=== PATIENT | male | born 1970 | race Caucasian/White ===

== ENCOUNTER → 2021-05-15 09:28 | Outpatient (CLI) | payer OTHER, SELFPAY ==
--- NOTE | 2021-05-15 09:32 | CT_ITS ---
PROCEDURE: CT ABDOMEN PELVIS W CON CLINICAL INDICATION: vomiting Mid abdominal pain COMPARISON: No exams were available for comparison TECHNIQUE: IV Contrast: 75ML Isovue 370 Oral Contrast None Axial images obtained with sagittal and coronal reformats. All CT scans at the facility use one or more dose reduction, viz: automated exposure control, ma/kV adjustment per patient size (including targeted exams where dose is matched to indication, i.e. head), or iterative reconstruction technique. FINDINGS: LOWER THORAX: 4 mm noncalcified nodules present in the right lower lobe laterally. Calcified nodules are also present. Subpleural opacity is present in left lower lobe 4 mm nonspecific. ABDOMEN & PELVIS: There is mild [place] steatosis. No focal liver lesion is apparent. The spleen, right adrenal gland, and pancreas has an unremarkable appearance. There is elongation both limbs of the left adrenal gland with the left limb containing a fatty nodule measuring 2.3 cm consistent with an adrenal myelolipoma. There are few scattered small nodes in the retroperitoneum. No renal or ureteral calculi. No renal mass or hydronephrosis. There is a mild amount of retained colonic feces. There is a large ventral abdominal wall hernia in the mid abdominal region which contains a loop of transverse colon. The herniated portion of the transverse colon extends across midline to the left. The hernia orifice measures 11 cm in diameter. This hernia is 13 cm cephalad to the umbilicus. There is a right periumbilical hernia which contains a loop of small bowel. This hernia orifice is approximately 3 cm in diameter. There is also a small umbilical hernia which contains a small loop of small bowel. No bowel obstruction is evident. No pelvic mass or abnormal fluid collection. Degenerative changes are present in the lower thoracic spine. Surgical clips are present in the central pelvic region IMPRESSION: 1. Large ventral abdominal wall hernia containing: In the upper abdomen. The herniated colon extends to the left of midline 2. Right periumbilical hernia containing a loop of small bowel with a small umbilical hernia also noted containing a loop of small bowel. 3. No evidence of bowel obstruction at this time 4. Left adrenal myelolipoma Dictated by: Jung Hall MD 05/16/2021 11:45 Jung Hall MD in [place] 05/16/2021 11:45
== END ==
PROVIDERS: PCP Family Medicine; Visit Provider Surgery
DX: R10.9 Unspecified abdominal pain (principal)
CPT/HCPCS: 74177; Q9967

== ENCOUNTER 2022-03-08 01:59 | Inpatient (IN) | payer OTHER, SELFPAY ==
[2022-03-08] VITALS (28 sets, daily range): BP systolic 91–175; BP diastolic 77–122; PULSE 78–111; RESP 18–24; TEMP 36.4–36.9; O2SAT 91–98; BMI 43.5
--- NOTE | 2022-03-08 | IR_ITS ---
APPROVED REPORT Patient Location: Inpatient Disability Liaison Officer: JOHN Key RT (R) PROCEDURES 1. Left heart catheterization 2. Selective coronary arteriography 3. Left ventriculography INDICATION 1. Non-Q wave myocardial infarction, 2. Coronary artery disease SCAI INDICATION Patient is a 51-year-old white male who presented with chest pain. Pressure and tightness in the chest. Known coronary disease. Malignant hypertension. Leak cardiac enzymes. Secondary to this referred for left heart catheterization Informed consent was obtained prior to the procedure. COMPLICATIONS NONE Estimated Blood Loss: LESS THAN 10 ML TECHNIQUE Radial approach. Jung's test appropriate for the procedure. Skin anesthetized and then accessed the radial artery. Sheath placed without difficulty. ANGIOGRAPHIC RESULTS The left main artery Distal 20% napkin ring stenosis The left anterior descending artery With an eccentric 30% proximal stenosis followed by a complex 50% proximal/mid stenosis and then a 99% mid stenosis. MICHAELA II flow to the distal left anterior descending itself. There was also a 50% stenosis noted at the wraparound to the apex. The distal left anterior descending collateralized the right coronary artery in its distal portion first diagonal branch was also noted to have a proximal 70% stenosis The circumflex artery Moderate sized vessel. 99% proximal stenosis followed by a stent in the mid vessel which was free of disease. Just after the stent patient had another 70% eccentric stenosis. MICHAELA II flow into the mid and distal left circumflex The right coronary artery Large and dominant. High atrial branch collateralized the distal right coronary artery with right to right collaterals. 100% proximal/mid occlusion of the right coronary artery itself The WARNER ventriculogram reveals Preserved normal left ventricular systolic function at 55 to 60% The left ventricular end-diastolic pressure 38 IMPRESSION 1. Critical three-vessel [place] coronary artery disease 2. Patent stent in the mid left circumflex 3. Preserved normal left ventricular systolic function 4. Severe elevation in left ventricular end-diastolic pressure 5. Successful removal of the radial sheath with placement of radial band PLAN 1. Patient will need coronary artery bypass grafting. Will be transferred to [facility]. Critical three-vessel [place] coronary artery disease with MICHAELA II flow in the left anterior descending and circumflex as well as 100% mid occlusion of the right coronary artery which is collateralized in its distal portion via right to right and left to right collaterals. Left ventricular function is preserved. Left ventricular end-diastolic pressure is severely elevated likely secondary to hypertensive heart disease. Heparin will be started and nitroglycerin drip will be continued. 80 mg of IV Lasix will also be given Electronically signed by : Tal Chauhan MD 03/08/2022 10:44:52
--- NOTE | 2022-03-08 02:17 | PC.NURSE ---
Patient arrived to floor via stretcher by EMS. @ 02:04.
--- NOTE | 2022-03-08 02:18 | PC.NURSE ---
Addendum entered by Ashley Figueredo RN 03/08/22 02:21: pt in trigeminy on monitor, HR low 100's, pt ambulated to bathroom independently Original Note: pt admitted to [facility] from [facility], EMS brought pt to room, pt on nitro drip at 50mcg/min, pt states still having the chest pain, pt has perisistent clearing throat cough
[2022-03-08 03:05] LABS: Coronavirus 19, PCR Not Detected (NotDetected); Influenza A, PCR Not Detected (NotDetected); Influenza B, PCR Not Detected (NotDetected)
--- NOTE | 2022-03-08 03:08 | PC.NURSE ---
during admission paperwork, pt stated has stopped smoking and only uses patches now
[2022-03-08 03:09] LABS: Basophils # 0.1 K/mm3 (0-0.2); Eosinophils # 0.1 K/mm3 (0.0-0.4); Eosinophils % 0.7 % (0.1-12.0); Hematocrit 54.1 % (42.0-52.0); Hemoglobin 17.2 g/dL (14.1-18.0); Lymphocytes # 0.9 K/mm3 (0.7-4.5); Lymphocytes % 9.8 % (10-50); Mean Corpuscular HGB Conc 31.7 g/dL (31.8-35.4); Mean Corpuscular Hemoglobin 30.6 pg (27.0-31.2); Mean Corpuscular Volume 96.4 fl (80-94); Mean Platelet Volume 10.1 fl (7.4-10.4); Monocytes # 0.7 K/mm3 (0.1-1.0); Monocytes % 7.4 % (1.7-9.3); Neutrophils # 7.7 K/mm3 (1.8-7.8); Neutrophils % 81.1 % (37.0-80.0); Platelet Count 204 K/mm3 (142-424); Red Blood Count 5.61 M/mm3 (4.60-6.20); Red Cell Distribution Width 14.9 % (11.5-17.5); White Blood Count 9.5 K/mm3 (4.8-10.8)
[2022-03-08 03:10] LABS: Chloride 103 mmol/L (98-107); Potassium 5.5 mmoL/L (3.5-5.1); Sodium 139 mmol/L (136-145)
[2022-03-08 03:13] LABS: Anion Gap 8.5 mEq/L (5-15); Blood Urea Nitrogen 15 mg/dl (9-20); Carbon Dioxide 33 mmol/L (22.0-30.0); Creatinine Clearance Estimated 101 mL/min (50-200); Estimated Glomerular Filt Rate 103 ml/min (>60); GFR (African American) 124 ML/MIN (>60)
[2022-03-08 03:14] LABS: Calcium 9.9 mg/dl (8.4-10.2); Glucose 322 mg/dl (74-100)
[2022-03-08 03:27] LABS: Troponin I 0.27 ng/ml (0.00-0.034)
--- NOTE | 2022-03-08 03:35 | ECG_ITS ---
APPROVED REPORT Exam: Resting ECG HR:106 bpm ECG Measurements Heart Rate 106 AXES OR 160 P 74 QRSd 105 QRS 59 QT 317 T -6 QTc 379 Conclusion SINUS TACHYCARDIA WITH FREQUENT VENTRICULAR PREMATURE COMPLEXES NONSPECIFIC ST & T-WAVE ABNORMALITY ABNORMAL ECG UNCONFIRMED REPORT Electronically signed by : Anders Nina MD 03/10/2022 14:07:32
--- NOTE | 2022-03-08 03:39 | PC.NURSE ---
0325: SPOKE WITH DR. TELLES TO INFORM HIM THAT PATIENT HAS ARRIVED FROM [facility]. INFORMED HIM PATIENT ARRIVED WITH A NITRO GTT INFUSION OF 50MCG. INFORMED HIM PATIENT IS STILL HAVING CHEST PAIN AND RATING IT A 6/10 ON NUMBER SCALE. INFORMED HIM PATIENT RECEIVED A DOSE OF MORPHINE PRIOR TO TRANSFER AND HE STATED HIS PAIN WAS NOT RELIEVED. INQUIRED IF HE WOULD LIKE TO ORDER ANYTHING ADDITIONAL FOR PAIN. INFORMED HIM BP: 158/98 HR: 111. MD STATED TO OBTAIN EKG SO HE COULD REVIEW. MD ALSO STATED IF PATIENT DID NOT RECEIVE 50MG METOPROLOL TARTRATE AT [facility] HE WOULD LIKE THAT GIVEN NOW. INFORMED Itz PEGUERO, PRIMARY RN OF DR. TELLES'S REQUEST. Itz PEGUERO, MICHELLE STATED PATIENT DID RECEIVE 50MG METOPROLOL TARTRATE AT [facility].
--- NOTE | 2022-03-08 09:53 | HMH.HP ---
*Admission Date: 03/08/22 *Chief complaint: chest pain *History of present illness: 51-year-old white male who was transferred from [facility] emergency room at the direction of Dr. Turk last evening with a non-STEMI. He has a history of coronary artery disease having undergone heart cath with stents 3 to [address] Anders Whitlock at [facility]. He states he has been having chest pain off and on for about 2 months that has been relieved with nitroglycerin however yesterday, he presented to the [facility] ER when his pain was not relieved with nitroglycerin. He also states he has been sleeping in a recliner for several weeks because of orthopnea. He reports increased swelling in his feet and ankles. He was diagnosed with non-STEMI and subsequently transferred here for cardiology consultation. He arrived from [facility] and was still having chest pain. Chest pain has persisted through the night and he is being taken to the [facility] this morning by Dr. Chauhan. [facility] History Medical History: Reports:: Coronary Artery Disease, Hypertension *Have you ever received a pneumonia vaccine?: No *Have you received a flu vaccine this season?: No Other Medical History: Reports: Other (Chronic pain syndrome) Other Surgeries: Yes: Colon Resection (Partial colon resection for complicated diverticulitis 2005), Coronary Stent - *Social History Smoking Status: Current every day smoker Alcohol Intake: former *Occupational Status:: employed *Travel in the last 8 weeks: None Family Hx:: No significant family history Review of Systems - Constitutional Denies chills, Denies fever(s) - Eyes Denies change in vision - ENT Denies abnormal hearing, Denies ear pain - *Cardiovascular Reports chest pain, Reports chest pain at rest, Reports chest pain with activity, Reports leg swelling, Reports shortness of breath when lying down - *Respiratory Reports cough, Reports shortness of breath, Denies coughing up blood - *Gastrointestinal Denies nausea, Denies vomiting - *Genitourinary Denies difficulty urinating - *Musculoskeletal Reports joint pain - Integumentary/Breasts Reports rash, Denies change in skin color - *Neurologic Denies confusion, Denies dizziness - Psychiatric Denies anxiety, Denies behavioral changes - Endocrine Reports excessive sweating, Denies cold intolerance - Hematologic/Lymphatic Reports easy bruising (attributes to Plavix) Meds Home Medications Medication Instructions Recorded Confirmed Type aspirin 81 mg tablet,delayed 81 mg PO DAILY 05/03/21 05/17/21 History release buprenorphine 8 mg-naloxone 2 mg 1 film SUBLINGUAL DAILY 05/03/21 05/17/21 History sublingual film clopidogrel 75 mg tablet 75 mg PO DAILY tab 05/03/21 05/17/21 History lisinopril 5 mg tablet 5 mg PO DAILY tab 05/03/21 05/17/21 History metoprolol tartrate 25 mg tablet 25 mg PO DAILY tab 05/03/21 05/17/21 History atorvastatin 80 mg tablet 80 mg PO DAILY tab 05/17/21 05/17/21 History Allergies Allergy/AdvReac Type Severity Reaction Status Date / Time No Known Allergies Allergy Verified 05/17/21 10:08 Exam Vital signs and Labs for Last 24 Hours: Temp Pulse Resp BP Pulse Ox 97.7 F 94 H 24 130/90 95 03/08/22 08:00 03/08/22 06:00 03/08/22 06:00 03/08/22 06:00 03/08/22 06:00 Laboratory Results - last 24 hr 03/08/22 02:55: WBC 9.5, RBC 5.61, Hgb 17.2, Hct 54.1 H, MCV 96.4 H, MCH 30.6, MCHC 31.7 L, RDW 14.9, Plt Count 204, MPV 10.1, Neut % (Auto) 81.1 H, Lymph % (Auto) 9.8 L, [place] % (Auto) 7.4, Eos % (Auto) 0.7, Baso % (Auto) 1.0, Neut # (Auto) 7.7, Lymph # (Auto) 0.9, [place] # (Auto) 0.7, Eos # (Auto) 0.1, Baso # (Auto) 0.1 03/08/22 02:55: Sodium 139, Potassium 5.5 H, Chloride 103, Carbon Dioxide 33 H, Anion Gap 8.5, BUN 15, Creatinine 0.80, Estimated Creat Clear 101, Estimated GFR 103, Est GFR ( Amer) 124, Glucose 322 H, Calcium 9.9, Troponin I 0.2
--- NOTE | 2022-03-08 09:57 | PC.NURSE ---
Patient off floor to field laboratory operator with field laboratory operator staff at this time.
--- NOTE | 2022-03-08 11:18 | HMH.PHAHEP ---
[facility] Pharm[facility] Heparin Dosing - Demographic Data Admission date:: 03/08/22 Date: 03/08/22 Time: 11:18 Allergies/Adverse Reactions: Allergies Allergy/AdvReac Type Severity Reaction Status Date / Time No Known Allergies Allergy Verified 05/17/21 10:08 Height: 1.67 m Weight: 122 kg - Indication Medication therapy:: Heparin Patient Problems: Current Active Problems Non-STEMI (non-ST elevated myocardial infarction) (Acute) ASCVD (arteriosclerotic cardiovascular disease) (Acute) Tobacco abuse (Acute) Morbid obesity (Acute) Chronic pain syndrome (Acute) CVA?: No Bleeding problem?: No Kidney disease?: No [place]?: Yes Desired PTT range:: 50-70 seconds Comments:: SPOKE WITH LILLIAM HARLEY RN DOSE FOR ACUTE CORONARY SYNDROME (LOW DOSE PROTOCOL) - Labs Anticoagulation Lab Results:: 03/08/22 02:55 Hgb 17.2 Hct 54.1 H Plt Count 204 - Core Measures Is INR > or = 2 at discharge?: No Most Recent Labs:: Laboratory Results - last 24 hr 03/08/22 02:55: WBC 9.5, RBC 5.61, Hgb 17.2, Hct 54.1 H, MCV 96.4 H, MCH 30.6, MCHC 31.7 L, RDW 14.9, Plt Count 204, MPV 10.1, Neut % (Auto) 81.1 H, Lymph % (Auto) 9.8 L, [place] % (Auto) 7.4, Eos % (Auto) 0.7, Baso % (Auto) 1.0, Neut # (Auto) 7.7, Lymph # (Auto) 0.9, [place] # (Auto) 0.7, Eos # (Auto) 0.1, Baso # (Auto) 0.1 03/08/22 02:55: Sodium 139, Potassium 5.5 H, Chloride 103, Carbon Dioxide 33 H, Anion Gap 8.5, BUN 15, Creatinine 0.80, Estimated Creat Clear 101, Estimated GFR 103, Est GFR ( Amer) 124, Glucose 322 H, Calcium 9.9, Troponin I 0.27 H 03/08/22 02:55: SARS-CoV-2 (PCR) Not detected, Influenza A Untype (PCR) Not detected, Influenza Type B (PCR) Not detected Were Heparin and Warfarin started on the same day?: No If not, why?: PT TRANSFERRED TO [facility]
--- NOTE | 2022-03-08 11:25 | HMH.PHAINT ---
home medication list verified using list from [facility]
--- NOTE | 2022-03-08 11:38 | PC.NURSE ---
1110- Patient returned from lab technician at this time, requires CABG, Dr Turk speaking to Dr Mcclain at to arrange transfer, baseline PTT drawn per lab, heparin drip started at 1000units/hr
[2022-03-08 12:43] LABS: PTT Heparin (inpatient only) 52.8 Seconds (23.6-34.0)
--- NOTE | 2022-03-08 15:50 | PC.NURSE ---
Patient has been pleasant and cooperative this shift, heart cath this am revealed need for CABG, awaiting transfer to , right radial cath site cdi with dsg in place, no bleeding or hematoma noted, pt has c/o of intermittent chest pain and SOA this shift, nitro drip infusing at 75mcg and heparin drip infusing at 1000units/hr, NSR/trigeminy/frequent PVCs per telemetry, patient has been up to chair all day, he reports he cannot lay flat due to him being SOA, given lasix this shift with good results, family at bedside, call light in reach.
--- NOTE | 2022-03-08 18:21 | PC.NURSE ---
1810-Patient becoming increasingly hypertensive and tachycardic, Dr Turk contacted at this time, BP 169/111, HR 104, given order to give metoprolol tartrate 100mg PO BID with first dose now, order faxed to nightwatch, given per emar.
[2022-03-08 19:38] LABS: PTT Heparin (inpatient only) 29.5 Seconds (23.6-34.0)
--- NOTE | 2022-03-08 19:41 | PC.NURSE ---
193- Lab called with PTT results, 29.5, night watch paged at this time 193- David with nightwatch notified of PTT results, given order for 4000unit bolus of heparin and to increase heparin drip to 1500units/hr.
[2022-03-09] VITALS: BP 127/79; PULSE 69; PULSE 70; RESP 22; TEMP 36.8; O2SAT 96
--- NOTE | 2022-03-09 00:38 | PC.NURSE ---
pt titrated from 90 mcg/min to 80 mcg/min at this time
[2022-03-09 00:59] LABS: PTT Heparin (inpatient only) 34.8 Seconds (23.6-34.0)
--- NOTE | 2022-03-09 01:04 | PC.NURSE ---
pharmacy consulted and spoke with Marleni at this time. ptt 34.8 reported. new orders received for 4000 unit bolus of heparin and orders to increase drip to 2000 units/hr. orders placed by nightwatch
[2022-03-09 02:00] VITALS: BP 141/95; PULSE 75; RESP 19; O2SAT 97
--- NOTE | 2022-03-09 03:10 | PC.NURSE ---
Nitro gtt titrated down to 70 mcg/min.
[2022-03-09 04:00] VITALS: BP 125/70; PULSE 73; PULSE 80; RESP 20; TEMP 37.1; O2SAT 90
[2022-03-09 04:57] VITALS: BMI 43.5
[2022-03-09 06:00] VITALS: BP 111/94; PULSE 87; RESP 18; O2SAT 91
--- NOTE | 2022-03-09 06:16 | PC.NURSE ---
pt has been SOA tonight. he states he is not able to lay down flat in the bed. O2 sats have been 90-97% on RA tonight. Nitro drip infusing at 70 mcg/min. Heparin drip infusing at 2000 units/hr.right radial cath site is clean , dry, and intact. no signs of hematoma. distal pulses 2+. he has been sinus tach and quadrigeminy on telemetry. HR has been 72-89. SBP has been 119-167. lung sounds diminished. +1 edema in bilat upper and lower extremities.
--- NOTE | 2022-03-09 06:36 | PC.NURSE ---
Spoke with [facility]. No beds available at this time.
[2022-03-09 07:28] LABS: PTT Heparin (inpatient only) 52.6 Seconds (23.6-34.0)
[2022-03-09 08:00] VITALS: BP 123/79; PULSE 80; PULSE 87; RESP 18; TEMP 36.5; O2SAT 94
--- NOTE | 2022-03-09 08:10 | PC.NURSE ---
Mary Gregg contacted with PTT 52.6, given order to continue heparin drip at current rate, no changes.
--- NOTE | 2022-03-09 09:21 | P.PN_ITS ---
Internal Medicine - PN: Subj *Date: 03/09/22 *Time: 09:21 Interval history: Cardiac cath report reviewed showing three-vessel disease. Transfer is being arranged to for bypass surgery. Subjectively he feels a little better this morning. Denies chest pain but is still dyspneic and orthopneic. Exam Vital signs and Labs for Last 24 Hours: Temp Pulse Resp BP Pulse Ox 97.7 F 80 18 111/94 H 91 L 03/09/22 08:00 03/09/22 08:00 03/09/22 06:00 03/09/22 06:00 03/09/22 06:00 Laboratory Results - last 24 hr 03/08/22 11:20: APTT 52.8 H* 03/08/22 18:53: APTT 29.5 03/09/22 00:25: APTT 34.8 H 03/09/22 06:22: APTT 52.6 H* I & O for Last 24 hours: Intake & Output 03/06/22 03/07/22 03/08/22 03/09/22 11:59 11:59 11:59 11:59 Intake Total 2065 / 2065 Output Total 4425 / 4425 Balance -2359 / -2359 Weight 268 lb 15.423 oz 268 lb Narrative: Is sitting up in chair and is alert. He appears to feel better. Color is good. Lungs are clear to auscultation. Heart is distant but regular. Extremities show trace edema. Assessment and Plan (1) Non-STEMI (non-ST elevated myocardial infarction) Status: Acute Category: Medical Code(s): I21.4 - Non-ST elevation (NSTEMI) m yocardial infarction (2) ASCVD (arteriosclerotic cardiovascular disease) Status: Acute Category: Medical Code(s): I25.10 - Atherosclerotic heart disease of [place] coronary artery without angina pectoris (3) Tobacco abuse Status: Acute Category: Medical Code(s): Z72.0 - Tobacco use (4) Morbid obesity Status: Acute Category: Medical Code(s): E66.01 - Morbid (severe) obesity due to excess calories (5) Chronic pain syndrome Status: Acute Category: Medical Code(s): G89.4 - Chronic pain syndrome - Assessment and plan all Dx Assessment and Plan for all problems:: bed control has contacted us and they now have a bed available. Arrangements are being made for transfer today.
[2022-03-09 10:00] VITALS: BP 136/84; PULSE 84; RESP 20; O2SAT 97
--- NOTE | 2022-03-09 23:32 | HMH.DCSUM ---
General - General Admission date:: 03/08/22 <Blanco Hameed - 03/18/22 21:54> 03/08/22 <Juana Mcnally - 03/09/22 23:36> Discharge date: 03/09/22 <Juana Mcnally - 03/09/22 23:36> HPI HPI: 51-year-old white male who was transferred from [facility] emergency room at the direction of Dr. Turk last evening with a non-STEMI. He has a history of coronary artery disease having undergone heart cath with stents 3 to [address] Anders Whitlock at [facility]. He states he has been having chest pain off and on for about 2 months that has been relieved with nitroglycerin however yesterday, he presented to the [facility] ER when his pain was not relieved with nitroglycerin. He also states he has been sleeping in a recliner for several weeks because of orthopnea. He reports increased swelling in his feet and ankles. He was diagnosed with non-STEMI and subsequently transferred here [facility]. Chest pain has persisted through the night and he is being taken to the [facility] this morning by Dr. Chauhan. <Juana Mcnally - 03/09/22 23:36> Hospital Course Hospital Course: Patient was taken to the [facility] and had critical three-vessel [place] coronary artery disease. He had a severe elevation in the left ventricular end-diastolic pressure. It was felt the patient would need coronary artery bypass grafting and would need transfer to the [facility]. He was started on heparin and was given 80 mg of IV Lasix. He did feel better by 03/09/2022 and denied any chest pain. He was still dyspneic and orthopneic. accepted the patient and he was transferred. <Juana Mcnally - 03/09/22 23:36> Objective Vital signs: Temp Pulse Resp BP Pulse Ox 97.7 F 84 20 136/84 97 03/09/22 08:00 03/09/22 10:00 03/09/22 10:00 03/09/22 10:00 03/09/22 10:00 <Blanco Hameed - 03/18/22 21:54> Temp Pulse Resp BP Pulse Ox 97.7 F 84 20 136/84 97 03/09/22 08:00 03/09/22 10:00 03/09/22 10:00 03/09/22 10:00 03/09/22 10:00 <Juana Mcnally - 03/09/22 23:36> Narrative: - Constitutional mild distress (mildly dyspneic and uncomfortable with chest pain), obese - *Routine HEENT Exam Head: Present: normocephalic, atraumatic Eye: Present: PERRL. Absent: scleral injection ENT: Present: mucous membranes moist - *Routine Neck Exam Present: supple (stocky). Absent: lymphadenopathy, thyromegaly - *Routine Respiratory Exam Present: decreased breath sounds, CTA bilaterally. Absent: rales, wheezes - *Routine Cardiovascular Exam Absent: murmur - *Routine Abdominal Exam Present: soft, other (Large ventral hernia). Absent: tenderness - *Routine Rectal Exam Rectal:: deferred - *Routine Genitalia Exam Genitalia:: deferred - *Routine Extremities Exam Present: edema. Absent: calf tenderness - *Routine Skin Exam Absent: rash Comments: Chronic venous stasis changes - *Routine Neurological Exam Present: alert, oriented X3. Absent: motor deficit <Juana Mcnally - 03/09/22 23:36> Results Labs on day of discharge: Labs from last 24 hours 03/09/22 03/09/22 06:22 00:25 APTT 52.6 H* 34.8 H <Juana Mcnally - 03/09/22 23:36> DS: Diagnosis - Discharge Diagnosis (1) Non-STEMI (non-ST elevated myocardial infarction) Status: Acute (2) ASCVD (arteriosclerotic cardiovascular disease) Status: Acute (3) Tobacco abuse Status: Acute (4) Morbid obesity Status: Acute (5) Chronic pain syndrome Status: Acute <Juana Mcnally - 03/09/22 23:32> (1) Non-STEMI (non-ST elevated myocardial infarction) Status: Acute (2) ASCVD (arteriosclerotic cardiovascular disease) Status: Acute (3) Tobacco abuse Status: Acute (4) Morbid obesity Status: Acute (5) Chronic pain syndrome Status: Acute
== END 2022-03-09 10:10 | disposition short-term general hospital (02) | DRG 281 ==
PROVIDERS: Internal Medicine Cardiovascular Disease; Admitting Provider Family Medicine; PCP Family Medicine; Visit Provider Family Medicine
PROC: 4A023N7 Measurement of Cardiac Sampling and Pressure, Left Heart, Percutaneous Approach (ICD-10-PCS; principal; 2022-03-08 07:50)
DX: I21.4 Non-ST elevation (NSTEMI) myocardial infarction (principal); Z79.02 Long term (current) use of antithrombotics/antiplatelets; Z68.41 Body mass index [BMI] 40.0-44.9, adult; I25.10 Atherosclerotic heart disease of native coronary artery without angina pectoris; F17.210 Nicotine dependence, cigarettes, uncomplicated; G89.4 Chronic pain syndrome; E66.01 Morbid (severe) obesity due to excess calories; Z79.899 Other long term (current) drug therapy; Z95.5 Presence of coronary angioplasty implant and graft; I10 Essential (primary) hypertension
CPT/HCPCS: 36415; 80048; 84484; 85025; 85730; 93005; 93458; 99152; C1760; C1769; C9803; G0378; J1644; Q9967; U0003; U0005

== ENCOUNTER 2024-05-18 10:00 | Outpatient (RCR) | payer OTHER, SELFPAY | END 2024-05-18 23:59 | disposition home or self-care (01) | LOC: PT 10:00 | PROVIDERS: Visit Provider Family Medicine | DX: L97.922 Non-pressure chronic ulcer of unspecified part of left lower leg with fat layer exposed (principal) | CPT/HCPCS: 97163; 97597 ==